=== PATIENT | female | born 1960 | race Two or more races ===

== ENCOUNTER 2024-10-09 14:10 | Emergency (ER) | payer MEDICAID, SELFPAY ==
[2024-10-09 14:10] VITALS: BMI 24.9
--- NOTE | 2024-10-09 14:15 | EKG_ITS ---
[facility] Test Date: 2024-10-09 Pat Name: RAHEEM DIETRICH Department: Room: - Gender: Female Divine Healer: : 1960 Requested By: ED Temporary Provider Order Number: [id number] Reading MD: ED Temporary Provider Measurements Intervals [place] Rate: 92 P: 83 MS: 121 QRS: 58 QRSD: 70 T: 72 QT: 357 QTc: 443 Interpretive Statements SINUS RHYTHM WITH FREQUENT VENTRICULAR PREMATURE COMPLEXES POSSIBLE RIGHT ATRIAL ENLARGEMENT [0.25mV P-WAVE] LEFT ATRIAL ENLARGEMENT [-0.15mV P-WAVE IN V1/V2] MODERATE ST DEPRESSION [0.05+ mV ST DEPRESSION] No previous ECG available for comparison /store/S0/[id number]
[2024-10-09 14:21] VITALS: BP 154/86; PULSE 75; RESP 18; TEMP 36.9; O2SAT 98
--- NOTE | 2024-10-09 14:33 | XR_ITS ---
Examination: PA lateral chest 2 views TECHNIQUE: Upright PA lateral chest 2 views Date and time: October 09, 2024 1446 hours Comparison June 13, 2015 INDICATIONS: Acute chest pain today. FINDINGS: Mild hyperexpansion. Normal heart size. No lobar pneumonia or pulmonary edema. Moderate osteopenia IMPRESSION: Mild hyperexpansion. No pneumonia or pulmonary edema
--- NOTE | 2024-10-09 14:34 | PD.EDRME ---
Rapid Medical Screening Exam RME Arrival date/time: 10/09/24 14:10 63-year-old female with a history of hypertension presents to the emergency room with a chief complaint of 10 out of 10 left sternal chest pain that radiates to the left arm x 2 days I have greeted and performed a focused initial assessment of this patient. A comprehensive ED assessment and evaluation of the patient, analysis of all test results, and completion of the medical decision making process will be conducted by additional ED providers. Chief Complaint: Chest Pain Vital signs: Vital Signs Temperature 98.5 F 10/09/24 14:21 Pulse Rate 75 10/09/24 14:21 Respiratory Rate 18 10/09/24 14:21 Blood Pressure 154/86 H 10/09/24 14:21 Pulse Oximetry (%) 98 10/09/24 14:21 Oxygen Delivery Method Room Air 10/09/24 14:21 Vital signs reviewed by provider: Yes
[2024-10-09 15:12] LABS: Basophils % (Auto) 1 % (0-2.5); Eosinophils % (Auto) 0 % (0-10); Hematocrit 42.7 % (36.0-46.0); Immature Granulocytes % (Auto) 0 % (0-0); Immature Granulocytes Auto 0.03 Thou/mm3 (0.00-0.00); Lymphocytes # (Auto) 1.4 Thou/mm3 (1.0-4.8); Lymphocytes % (Auto) 18 % (10-50); Mean Corpuscular HGB Conc 32.8 g/dl (31.0-37.0); Mean Corpuscular Hemoglobin 28.6 pg (25.0-35.0); Mean Corpuscular Volume 87 fL (80-100); Monocytes # (Auto) 0.4 Thou/mm3 (0.0-0.8); Monocytes % (Auto) 5 % (0-12); Neutrophils # (Auto) 5.9 Thou/mm3 (1.8-7.7); Neutrophils % (Auto) 75 % (37-80); Nucleated Red Blood Cell % 0 /100 WBC (0); Platelet Count 240 Thou/mm3 (140-440); RDW Standard Deviation 43.1 fL (36.4-46.3); White Blood Count 7.8 Thou/mm3 (3.6-11.0)
[2024-10-09 15:29] LABS: Alanine Aminotransferase 12 U/L (10-49); Albumin, Serum 4.3 gm/dL (3.4-4.8); Albumin/Globulin Ratio 1.7 (1.2-2.2); Alkaline Phosphatase 82 U/L (46-116); Anion Gap 9 (7-16); Aspartate Amino Transferase 17 U/L (0-34); BUN/Creatinine Ratio 20 Ratio (12-20); Bilirubin,Total 0.6 mg/dL (0.3-1.2); Blood Urea Nitrogen 14 mg/dL (9-23); Calcium 8.8 mg/dL (8.3-10.6); Calcium (Corrected) 8.8 mg/dL (8.5-10.1); Carbon Dioxide 30.9 mMol/L (20.0-31.0); Chloride 103 mMol/L (98-107); Creatinine (Component) 0.7 mg/dL (0.6-1.3); Estimated Creatinine Clearance 75.8 mL/min (>60); Globulin 2.5 gm/dL (2.3-3.5); Glucose 140 mg/dL (74-106); Osmolality,Calculated 287 (275-295); Potassium 3.4 mMol/L (3.4-5.1); Sodium 143 mMol/L (136-145); Total Protein 6.8 gm/dL (5.7-8.2); Troponin I < 0.002 ng/mL (0.0-0.045); eGFR > 60 See Note
[2024-10-09 15:34] LABS: Collection Type, Urine Clean Catch
[2024-10-09 15:39] LABS: Bilirubin,Urine Negative (Negative); Blood,Urine 1+ (Negative); Clarity,Urine Clear (Clear/Hazy); Color,Urine Lt-Yellow (Lt Yel-Yel); Glucose, Urine Negative (Negative); Ketones,Urine Negative (Negative); Leukocyte Esterase,Urine Negative (Negative); Nitrite,Urine Negative (Negative); Protein,Urine Negative (Neg - Trace); RBC,Urine 2 /hpf (0-3); Specific Gravity,Urine 1.012 (1.001-1.035); Squamous Epithelial Cell,Urine < 1 /hpf (0-5); Urobilinogen,Urine Negative mg/dL (0.0-1.0); WBC,Urine < 1 /hpf (0-5)
[2024-10-09 15:40] LABS: B-Type Natriuretic Peptide 53 pg/mL (0-100)
[2024-10-09 15:45] LABS: Amphetamine/Methamp Scrn,U Negative (Negative); Barbiturate Screen,Urine Negative (Negative); Benzodiazepines Screen,Urine Negative (Negative); Benzoylecgonine Screen, Ur Negative (Negative); Fentanyl Screen,Urine Negative (Negative); Opiate Screen,Urine Negative (Negative); THC Screen,Urine Negative (Negative)
[2024-10-09 16:09] VITALS: BP 142/73; PULSE 70; RESP 16; TEMP 36.7; O2SAT 100
--- NOTE | 2024-10-09 16:15 | CHAP ---
Patient expressed gratitude for visit and prayer.
--- NOTE | 2024-10-09 16:54 | EDNOTE_ITS ---
<Statement entered by Rianna Snyder MD - 10/10/24 06:10> As co-signing physician, I was present and available for consult prn. I concur with the plan and care as documented by the midlevel provider. ED Chest Pain RME/HPI General Chief Complaint: Chest Pain Stated Complaint: CHEST PAIN x 5 DAYS, SEEN BY PMD TODAY Time Seen by Provider: 10/09/24 16:12 Arrival date/time: 10/09/24 14:10 RME / HPI RME / HPI narrative: 63-year-old female with a history of hypertension presents to the emergency room with a chief complaint of 10 out of 10 left sternal chest pain that radiates to the left arm x for the last 5 days. Denies any shortness of breath. Patient denies any cough denies any other complaints no medications taken prior to arrival. Related Data Home Medications ?Medication ?Instructions ?Recorded ?Confirmed carvedilol 3.125 mg tablet (Coreg) 3.125 mg PO BID #0 tabs 04/09/17 10/16/20 aspirin 325 mg tablet 325 mg PO QDAY 12/07/17 0610/01 Previous Rx's ?Medication ?Instructions ?Recorded ibuprofen 800 mg tablet 800 mg PO Q8H PRN pain #30 t abs 10/09/24 Allergies Allergy/AdvReac Type Severity Reaction Status Date / Time codeine AdvReac Severe CHEST PAIN Verified 10/09/24 14:12 Review of Systems Review of Systems Narrative Review of Systems: Review of system reviewed and within normal limits except mentioned in HPI ED Exam Narrative Physical exam: VITAL SIGNS: Reviewed. GENERAL APPEARANCE: Alert and interactive, follows commands, no acute distress, HEAD AND FACE: Non-traumatic. ENT: PERRL, pink conjunctivitis, eyelid no trauma, Mucous membrane moist. NECK: Supple, nontender, no nuchal rigidity. CHEST: No tenderness, no crepitus, no paradoxical movement, no retractions. LUNGS: Clear, well ventilated, symmetric, no rales, no wheezing, no ronchi, no stridor, good breath sounds bilaterally. HEART: Regular rate, regular rhythm, no murmur, no gallops. ABDOMEN: Soft, positive bowel sounds, nondistended, no guarding, nontender, no rebound, no masses, RECTAL: Deferred. GENITAL: Deferred. NEUROLOGICAL: Gross motor function intact sensory function intact, Appropriate for age. MUSCULOSKELETAL: low back nontender, full range of motion. EXTREMITIES: Nontender, full range of motion. SKIN: Color pink, dry, no rash, no lacerations, no abrasions, no contusions. LYMPHATICS: Deferred. Course Quality Measures none Orders Category Date Time Status EKG (ED ONLY) *Do not use* NOW Care 10/09/24 14:15 Completed EKG (ED Only) Stat Exams 10/09/24 14:15 Draft XR chest 2V Stat Exams 10/09/24 14:33 Completed B-Type Natriuretic Peptide Stat Lab 10/09/24 14:58 Completed CBC Stat Lab 10/09/24 14:58 Completed Comprehensive Metabolic Panel Stat Lab 10/09/24 14:58 Completed Drug Screen,Urine Stat Lab 10/09/24 15:25 Completed Magnesium Stat Lab 10/09/24 14:58 Completed Troponin I Stat Lab 10/09/24 14:58 Completed Urinalysis Stat Lab 10/09/24 15:25 Completed Vital Signs Vital signs: Vital Signs Temperature 98.5 F 10/09/24 14:21 Pulse Rate 75 10/09/24 14:21 Respiratory Rate 18 10/09/24 14:21 Blood Pressure 154/86 H 10/09/24 14:21 Pulse Oximetry (%) 98 10/09/24 14:21 Oxygen Delivery Method Room Air 10/09/24 14:21 Chest Pain MDM Narrative MDM Narrative:: 63-year-old female with a history of hypertension presents to the emergency room with a chief complaint of 10 out of 10 left sternal chest pain that radiates to the left arm x for the last 5 days. Denies any shortness of breath. Patient denies any cough denies any other complaints no medications taken prior to arri andrea. Patient CBC came back unremarkable. CMP normal troponin is normal BNP is normal urinalysis no UTI. I personally reviewed and interpreted the x-ray of this patient. There is no acute abnormalities found, no infiltrates no pneumothorax no hemothorax normal chest x-ray. Review of other structures was without significant abnormal findings also. I additionally reviewed the radiologist report and agree with the interpretation. EKG showed normal sinus rhythm, ventricular rate of [address] segment elevation or depression noted. Patient was advised to closely follow-up with PCP and for referral to customer development representative for persistent of chest pain. Today's cardiac workup all came back normal. Patient data External records reviewed:: None Clinical information provided by:: patient Social determinants that could affect healthcare access:: none Patient has the following chronic illnesses:: Hypertension How is presenting disease/condition affected by chronic disease/condition?: exacerbated by Evaluation data The following diagnostics were reviewed and interpreted by me:: lab results, radiology exam(s) and EKG tracing(s) Lab and/or radiology exams considered but not ordered:: None Interpretation Summary: See results in Medications / Prescriptions Medications or Prescriptions considered but not ordered:: None Medication administrations:: None Consultations Consultation(s) initiated? (list below): No Diagnosis Chest Pain Differential Diagnosis: pneumothorax, atypical chest pain and chest pain Most likely diagnosis given after review of the tests above:: Chest pain Admission Indicated Admission indicated?: not indicated Admission Request Was there a request for admission?: No Disposition Plan Disposition Plan: Discharge Discharge Attestation Discharge Attestation: The patient was given an opportunity to ask questions and understood the discharge instructions. Discharge instructions specifically effects, indications for sooner follow up or return to the emergency department, and the expected course of current diagnosis. Patient condition: Stable Discharge Plan Plan Patient Disposition: HOME (Self Care) Discharge Disposition comment: Stable Prescriptions/Referrals Prescriptions/Med Rec: New ibuprofen 800 mg tablet 800 mg PO Q8H PRN (Reason: pain) Qty: 30 0RF No Action carvedilol [Coreg] 3.125 MG tablet 3.125 mg PO BID Qty: 0 aspirin 325 mg Tablet 325 mg PO QDAY Referrals: Randy Ceron MD [Primary Care Provider] - In 1 week Problem List Clinical Impression: Chest pain Patient/Caregiver Discharge Instructions Discharge Activity: activity as tolerated Education Materials: ED Chest Pain, Uncertain Cause Additional Instructions: Thank you for the opportunity for serving you today. You are stable for discharged . You are advised to: Follow-up with your PCP in 1 to 2 days Return to ED for worsening of symptoms Increase oral fluids Take medication as prescribed Print Language: Swedish Stand Alone Forms: Hannah Award Info., Patient Portal Info Letter
== END 2024-10-09 16:55 | disposition home or self-care (01) ==
PROVIDERS: Nurse Practitioner Family; Emergency Provider Emergency Medicine; PCP Family Medicine
DX: R07.9 Chest pain, unspecified (principal); I10 Essential (primary) hypertension
CPT/HCPCS: 36415; 71046; 80053; 80307; 81001; 83735; 83880; 84484; 85025; 93005; 99283

== ENCOUNTER 2024-10-25 11:23 | Emergency (ER) | payer MEDICAID, SELFPAY ==
[2024-10-25] VITALS (8 sets, daily range): BP systolic 117–163; BP diastolic 66–104; PULSE 74–91; RESP 14–24; TEMP 36.7–36.8; O2SAT 76–99; BMI 24.3
--- NOTE | 2024-10-25 11:24 | EKG_ITS ---
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
--- NOTE | 2024-10-25 11:45 | XR_ITS ---
Examination: AP chest single view Technique: AP portable upright chest single view. Date time: 10/25/2024 1231 pm Findings: Normal heart size. No pneumonia or pulmonary edema Impression: No active disease
[2024-10-25] MEDS: fentaNYL CIT INJ 50 mCg/ML AMP 2ML IVP (11:54)
[2024-10-25] MEDS: METOPROLOL TARTRATE INJ 1 MG/ML AMP 5 ML 5 MG IVP (11:55)
--- NOTE | 2024-10-25 11:55 | EDNOTE_ITS ---
ED General RME/HPI General Chief complaint: Chest Pain Stated complaint: CHEST PAIN Time Seen by Provider: 10/25/24 11:41 Arrival date/time: 10/25/24 11:23 Limitations: no limitations RME / HPI RME / HPI narrative: DR. LEVI MAIN ED EVALUATION: 63 year old female presents to the Emergency Department [facility] with complaint of chest pain since 8 AM. Patient took ASA at home with no pain relief. Pain is worse with certain movements and taking a breath. Patient has no history of CAD history but does follow up with carton machine operator Dr. Gonzalez for irregular heart rhythm. Related Data Home Medications ?Medication ?Instructions ?Recorded ?Confirmed carvedilol 3.125 mg tablet (Coreg) 3.125 mg PO BID #0 tabs 04/09/17 10/16/20 aspirin 325 mg tablet 325 mg PO QDAY 12/07/1710/01 Previous Rx's ?Medication ?Instructions ?Recorded ibuprofen 800 mg tablet 800 mg PO Q8H PRN pain #30 t abs 10/09/24 Allergies Allergy/AdvReac Type Severity Reaction Status Date / Time codeine AdvReac Severe CHEST PAIN Verified 10/09/24 14:12 Review of Systems Review of Systems Systems Reviewed: All systems reviewed, normal except as documented Past Medical History Past Medical History CARDIAC: Positive Cardiac Disorders, Myocardial Infarction (2022) and Hypertension; Negative Congestive Heart Failure RESPIRATORY: Negative Chronic Obstructive Pulmonary Disease (COPD) or Asthma GASTROINTESTINAL: Positive Gastrointestinal Disorders, Pancreatitis and Gall Bladder Disease GENITOURINARY: Negative Renal Disease ENDOCRINE: Negative Diabetes Mellitus Type 1 or Diabetes Mellitus Type 2 HEMATOLOGIC: Negative Sickle Cell Disease Family History FAMILY HISTORY: Negative Family Cardiac Disorders Surgical History SURGICAL: Positive Abdominal Surgery, Bowel Surgery and Hysterectomy Social History SMOKING STATUS: Never smoker SUBSTANCE USE: does not use ALCOHOL: Never ED Exam General Limitations: Present no limitations General appearance: Present alert and in no apparent distress Head Head exam: Present atraumatic, normocephalic and normal inspection Eye Eye exam: Present normal appearance, PERRL and EOMI ENT ENT exam: Present normal exam, normal oropharynx and mucous membranes moist Neck Neck exam: Present normal inspection, full ROM and trachea midline Chest Chest inspection: Present symmetric chest wall rise and tenderness (point tenderness to the left chest area, pain is reproducible with palpation) Respiratory Respiratory exam: Present normal lung sounds bilaterally Cardiovascular Cardiovascular exam: Present regular rate, normal rhythm and normal heart sounds Abdominal Exam Abdominal exam: Present soft and normal bowel sounds Extremities Exam Extremities exam: Present normal inspection and full ROM Back Exam Back exam: Present normal inspection and full ROM Neurological Exam Neurological exam: Present alert, oriented X3 and CN II-XII intact Psychiatric Psychiatric exam: Present normal affect and normal mood Skin Skin exam: Present warm, dry, intact and normal color Course Quality Measures none Orders Category Date Time Status CT Screening NOW Care 10/25/24 13:23 Active Supervisor [employer] Q4H START 00 Care 10/25/24 11:34 Active Supervisor [employer] STAT Care 10/25/24 11:45 Completed Continuous Pulse Oximetry ONCE Care 10/25/24 11:45 Active EKG (ED ONLY) *Do not use* NOW Care 10/25/24 11:25 Completed EKG (ED ONLY) *Do not use* NOW Care 10/25/24 13:24 Completed Insert IV NOW Care 10/25/24 11:35 Completed Insert IV STAT Care 10/25/24 11:[address] angio chest Stat Exams 10/25/24 13:23 Completed EKG (ED Only) Stat Exams 10/25/24 11:24 Draft EKG (ED Only) Stat Exams 10/25/24 13:24 Draft XR chest 1V portable Stat Exams 10/25/24 11:45 Completed B-Type Natriuretic Peptide Stat Lab 10/25/24 11:40 Completed CBC Stat Lab 10/25/24 11:40 Completed Comprehensive Metabolic Panel Stat Lab 10/25/24 11:40 Completed Troponin I Stat Lab 10/25/24 11:40 Completed Troponin I Stat Lab 10/25/24 14:25 Completed Metoprolol Tartrate Inj [Lopressor Inj] Med 10/25/24 11:47 Discontinued 5 mg IVP X1 ONE fentaNYL INJ [Sublimaze Inj] Med 10/25/24 11:46 Discontinued 50 mcg IVP X1 ONE Oxygen Delivery NOW RT 10/25/24 11:35 Completed Oxygen Delivery NOW RT 10/25/24 11:45 Active Reevaluation(s) Reevaluation #1: Patient is pain-free. Both troponins were negative, at 1140 hours and 1425 hours. Patient remains clinically stable throughout the emergency department visit. Re- assessment at the time of disposition demonstrates that the patient is in no acute distress. We reviewed all the results, analysis, and treatment plans. Patient is amenable to discharge. Strict return precautions were outlined. Patient was discharged in stable condition. Time: 15:25 Vital Signs Vital signs: Vital Signs Temperature 98.3 F 10/25/24 11:36 Pulse Rate 91 10/25/24 11:36 Respiratory Rate 23 H 10/25/24 11:36 Blood Pressure 163/104 H 10/25/24 11:36 Pulse Oximetry (%) 97 10/25/24 11:36 Oxygen Delivery Method Room Air 10/25/24 11:36 Discharge Plan Plan Patient Disposition: HOME (Self Care) Patient condition on transfer: Stable Prescriptions/Referrals Prescriptions/Med Rec: No Action carvedilol [Coreg] 3.125 MG tablet 3.125 mg PO BID Qty: 0 aspirin 325 mg Tablet 325 mg PO QDAY ibuprofen 800 mg tablet 800 mg PO Q8H PRN (Reason: pain) Qty: 30 0RF Referrals: Randy Ceron MD [Primary Care Provider] - In 1 week Problem List Clinical Impression: Non-cardiac chest pain, Frequent PVCs Patient/Caregiver Discharge Instructions Education Materials: PVCs, ED Chest Pain, Noncardiac Print Language: Greek Stand Alone Forms: Arden Reed Info., Patient Portal Info Letter MDM Clinical Information Provided by patient and EMS Medical Records Reviewed EMS Meds/Rx Considered, not Ordered None Labs/Rad/Tests considered, not Ordered None Chronic Illness/Social Conditions Add or document further as needed: Patient has no history of CAD history but does follow up with carton machine operator Dr. Gonzalez for irregular heart rhythm. EKG EKG Interpretation narrative: EKG #1: My interpretation: EKG performed at 1129 hours, sinus rhythm, rate 91, multiple PVCs, non specific ST-T changes EKG #2: My interpretation: EKG performed at 1140 hours, sinus rhythm, rate 89, multiple PVCs, non specific ST-T changes Lab Interpretation Labs: interpreted by me Lab(s) interpretation(s): Both troponins were negative, at 1140 hours and 1425 hours. Imaging Radiology reports / interpretation(s): Procedure(s): CT angio chest Accession Number(s): [id number] cc: Randy Ceron MD; Willian Levi MD; Kennedy Geronimo MD~ Examination: CTA chest with intravenous contrast 2-D reconstructions 3-D reconstructions, vascular Date and time of exam: 10/25/2024 1353 hrs Indications: Chest pain today CTDI: vol (mGy) 11.8 DLP: (mGycm) 251 Technique: Multiple axial sections of the thorax have been obtained. 3 mm slice thickness, from below the hemidiaphragms to above the apices of the lungs. Mediastinal and lung density settings have been obtained. 2-D sagittal and coronal reconstructions. 3-D angiographic renderings, 3-D volume renderings, 3D post processing, vascular maximum intensity projections obtained. Contrast administered is 100 cc Isovue-370. Low dose protocols were performed. One or more of the following dose reduction techniques were used; automated exposure control, adjustment of the mA and/or KV according to patient size, use of iterative reconstruction technique. Findings: No thoracic aortic aneurysmal dilatation or dissection. No pulmonary emboli. No mediastinal lymphadenopathy. No pneumonia or pulmonary edema or pleural disease. No focal liver or splenic lesion. Impression: Negative for pulmonary artery emboli. No pneumonia or pulmonary edema. Dictated By: Kennedy Geronimo MD Procedure(s): XR chest 1V portable Accession Number(s): [id number] cc: Randy Ceron MD; Willian Levi MD; Kennedy Geronimo MD~ Examination: AP chest single view Technique: AP portable upright chest single view. Date time: 10/25/2024 1231 pm Findings: Normal heart size. No pneumonia or pulmonary edema Impression: No active disease Dictated By: Kennedy Geronimo MD Medication Administration(s) Medication Administration History Discontinued Medications Fentanyl Citrate (Fentanyl Cit Inj 50 Mcg/Ml Amp 2ml) 50 mcg IVP X1 ONE Stop: 10/25/24 11:47 Last Admin: 10/25/24 11:54 Dose: 50 mcg Documented By: CARIDAD Metoprolol Tartrate (Metoprolol Tartrate Inj 1 Mg/Ml Amp 5 Ml) 5 mg IVP X1 ONE Stop: 10/25/24 11:48 Last Admin: 10/25/24 11:55 Dose: 5 mg Documented By: CARIDAD Diagnosis Differential diagnosis: ACS, PE, costochondritis, GERD Most likely dx, and/or detailed dx discussion: Non-cardiac chest pain Frequent PVCs Dispositon Disposition: Discharge Home
[2024-10-25 12:03] LABS: Basophils % (Auto) 1 % (0-2.5); Eosinophils % (Auto) 1 % (0-10); Hematocrit 42.3 % (36.0-46.0); Hemoglobin 14.6 g/dL (12.0-16.0); Immature Granulocytes % (Auto) 1 % (0-0); Immature Granulocytes Auto 0.04 Thou/mm3 (0.00-0.00); Lymphocytes # (Auto) 1.6 Thou/mm3 (1.0-4.8); Lymphocytes % (Auto) 24 % (10-50); Mean Corpuscular HGB Conc 34.5 g/dl (31.0-37.0); Mean Corpuscular Volume 84 fL (80-100); Monocytes # (Auto) 0.4 Thou/mm3 (0.0-0.8); Monocytes % (Auto) 7 % (0-12); Neutrophils # (Auto) 4.6 Thou/mm3 (1.8-7.7); Neutrophils % (Auto) 68 % (37-80); Nucleated Red Blood Cell % 0 /100 WBC (0); Platelet Count 232 Thou/mm3 (140-440); RDW Standard Deviation 41.9 fL (36.4-46.3); Red Blood Count 5.03 Miln/mm3 (4.00-5.20); White Blood Count 6.8 Thou/mm3 (3.6-11.0)
[2024-10-25 12:23] LABS: Alanine Aminotransferase 15 U/L (10-49); Albumin, Serum 4.8 gm/dL (3.4-4.8); Albumin/Globulin Ratio 1.7 (1.2-2.2); Alkaline Phosphatase 93 U/L (46-116); Anion Gap 15 (7-16); Aspartate Amino Transferase 22 U/L (0-34); BUN/Creatinine Ratio 11 Ratio (12-20); Bilirubin,Total 0.7 mg/dL (0.3-1.2); Blood Urea Nitrogen 11 mg/dL (9-23); Calcium 9.9 mg/dL (8.3-10.6); Calcium (Corrected) 9.9 mg/dL (8.5-10.1); Carbon Dioxide 24.5 mMol/L (20.0-31.0); Chloride 103 mMol/L (98-107); Estimated Creatinine Clearance 49.1 mL/min (>60); Globulin 2.8 gm/dL (2.3-3.5); Glucose 123 mg/dL (74-106); Osmolality,Calculated 283 (275-295); Potassium 3.6 mMol/L (3.4-5.1); Sodium 142 mMol/L (136-145); Total Protein 7.6 gm/dL (5.7-8.2); Troponin I < 0.020 ng/mL (0.0-0.045); eGFR > 60 See Note
[2024-10-25 12:48] LABS: B-Type Natriuretic Peptide 70 pg/mL (0-100)
--- NOTE | 2024-10-25 13:22 | PC.NURSE ---
DR. VAN IN TO TALK WITH PT
--- NOTE | 2024-10-25 13:23 | XR_ITS ---
Examination: CTA chest with intravenous contrast 2-D reconstructions 3-D reconstructions, vascular Date and time of exam: 10/25/2024 1353 hrs Indications: Chest pain today CTDI: vol (mGy) 11.8 DLP: (mGycm) 251 Technique: Multiple axial sections of the thorax have been obtained. 3 mm slice thickness, from below the hemidiaphragms to above the apices of the lungs. Mediastinal and lung density settings have been obtained. 2-D sagittal and coronal reconstructions. 3-D angiographic renderings, 3-D volume renderings, 3D post processing, vascular maximum intensity projections obtained. Contrast administered is 100 cc Isovue-370. Low dose protocols were performed. One or more of the following dose reduction techniques were used; automated exposure control, adjustment of the mA and/or KV according to patient size, use of iterative reconstruction technique. Findings: No thoracic aortic aneurysmal dilatation or dissection. No pulmonary emboli. No mediastinal lymphadenopathy. No pneumonia or pulmonary edema or pleural disease. No focal liver or splenic lesion. Impression: Negative for pulmonary artery emboli. No pneumonia or pulmonary edema.
--- NOTE | 2024-10-25 13:24 | EKG_ITS ---
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
[2024-10-25 14:56] LABS: Troponin I < 0.020 ng/mL (0.0-0.045)
== END 2024-10-25 15:45 | disposition home or self-care (01) ==
PROVIDERS: Emergency Provider Emergency Medicine; PCP Family Medicine
DX: R07.89 Other chest pain (principal); I49.3 Ventricular premature depolarization
CPT/HCPCS: 36415; 71045; 71275; 80053; 83880; 84484; 85025; 93005; 96374; 96375; 99285; A4649; J3010; J3490; Q9967

== ENCOUNTER 2025-03-11 09:30 | Outpatient (RCR) | payer MEDICARE, OTHER, SELFPAY ==
--- NOTE | 2025-03-09 10:45 | PTNOTE_ITS ---
PT OP Initial Eval Patient Information Outpatient Physical Therapy Treatment Date: 03/09/25 Visit Reasons: left knee pain Medical Diagnosis: M17.12 Treatment Dx #1: Left Knee Pain Treatment Dx #2: Left Knee Weakness Start of Care: 03/09/25 Date of Onset: 1 year ago Smoking Status Smoking Status: Never smoker Initial Assessment Subjective: Pt is a 64 y/o female reports of chronic left knee pain s/p TKA revision by Dr Elizalde~ 1 year ago. Pt still has pain (6/10) with weakness leading to difficulty with ADLs. Pt has limitation with walking, standing, chores, self care, balance, stairs, and squatting motions. Objective: Left Knee AROM: 0 deg to 120 deg Left Knee MMTs: grossly 4-/5 Left Hip MMTs: grossly 3+/5 SLS: NT Assessment: Pt demonstrate left knee pain with weakness leading to difficulty with ADLs s/p TKA revision. Pt will benefit from physical therapy to increase strength, work on ambulation, and LE stability. Short Term and Correction Goals 1) Increase left knee MMTs grossly to 4/5 in 6 wks to be able to perform squatting motions 2) Decrease knee pain to 2/10 in 6 wks to be able to stand more than 30 mins 3) Increase left hip MMTs grossly to 4-/5 in 6 wks to be able to walk more than 30 mins 4) Increase SLS to 10 sec in 6 wks to be able to perform self care activities 5) Indep with HEP Treatment Plan 1) Manual Therapy 2) Therapeutic Activities 3) Therapeutic Exercises 4) Modalities (ice, heat) 5) Balance Training 6) Gait Training Frequency and Duration: 2 x wk for 6 wks Certification Dates: 03/09/25 to 06/09/25 Procedure Charges OP PT Eval Mod Complex 30 minutes: Yes
--- NOTE | 2025-03-11 10:04 | PT.ODAYNRPT ---
PT Outpatient Daily Note OP Daily Note Outpatient Physical Therapy Treatment Date: 03/11/25 Visit Reasons: left knee pain Subjective: Pt reports L knee pain, worse with increase activity. Objective: Please see flow sheet for ther ex list. Assessment: Pt demonstrates poor activity tolerance due to pain response. Plan: Assess response to treatment. Length of Time (minutes) of Treatment: 30 Minutes Procedure Charges Therapeutic Exercise 30 minutes: Yes
== END 2025-03-13 23:59 | disposition home or self-care (01) ==
LOC: CPTX 09:30
PROVIDERS: PCP Family Medicine; Referring Provider Family Medicine; Visit Provider Family Medicine
DX: M25.562 Pain in left knee (principal); R53.1 Weakness; R26.2 Difficulty in walking, not elsewhere classified; R26.89 Other abnormalities of gait and mobility; Z96.652 Presence of left artificial knee joint
CPT/HCPCS: 97110; 97162

== ENCOUNTER 2025-04-12 17:44 | Emergency (ER) | payer MEDICARE, OTHER, SELFPAY ==
[2025-04-12 17:44] VITALS: BMI 23.3
[2025-04-12 18:10] VITALS: BP 154/82; PULSE 63; RESP 19; TEMP 36.8; O2SAT 98
--- NOTE | 2025-04-12 19:08 | XR_ITS ---
EXAMINATION: Left wrist 2 views TECHNIQUE: AP lateral left wrist 2 views Date and time: April 12, 2025, 1910 hours INDICATIONS: Patient fell today with injury to the wrist, wrist pain. FINDINGS: No fracture. Distal ulna is mildly dorsally positioned on the lateral view Soft tissue calcification adjacent to the radial styloid IMPRESSION: No acute fracture On the lateral view the distal ulna is mildly dorsally positioned, clinical correlation advised
--- NOTE | 2025-04-12 21:48 | EDNOTE_ITS ---
Upper Extremity Injury RME/HPI General Chief Complaint: Hand/Wrist Problems Stated Complaint: L WRIST PAIN S/P FALL Time Seen by Provider: 04/12/25 18:31 Arrival date/time: 04/12/25 17:44 This is a case of 64-year-old female with history of hypertension came in in the emergency room due to left wrist injury history of present illness today patient tripped and fell and landed on his left wrist sustaining a skin tear and pain and swelling on the left wrist no other injury noted denies any head neck chest or abdominal injury no loss of consciousness Limitations: no limitations Related Data Home Medications ?Medication ?Instructions ?Recorded ?Confirmed carvedilol 3.125 mg tablet (Coreg) 3.125 mg PO BID #0 tabs 04/09/17 10/16/20 aspirin 325 mg tablet 325 mg PO QDAY 12/07/1710/01 Previous Rx's ?Medication ?Instructions ?Recorded ibuprofen 800 mg tablet 800 mg PO Q8H PRN pain #30 t abs 10/09/24 cephalexin 500 mg capsule 500 mg PO QID #40 caps 04/12 hydrocodone 5 mg-acetaminophen 325 1 tab PO Q6H PRN pa in #12 tabs 04/12/25 mg tablet mupirocin 2 % topical ointment 1 applic topical BID #2 2 grams 04/12/25 (Centany) Allergies Allergy/AdvReac Type Severity Reaction Status Date / Time codeine Allergy Severe CHEST PAIN Verified 04/12/25 21:44 Review of Systems Review of Systems Systems Reviewed: All systems reviewed, normal except as documented Constitutional Constitutional: Reports system reviewed and no additional complaints, except as documented and Reports as per HPI Cardiovascular Cardiovascular: Reports system reviewed and no additional complaints, except as documented and Reports as per HPI Respiratory Respiratory: Reports system reviewed and no additional complaints, except as documented and Reports as per HPI Gastrointestinal Gastrointestinal: Reports system reviewed and no additional complaints, except as documented and Reports as per HPI Genitourinary Genitourinary: Reports system reviewed and no additional complaints, except as documented and Reports as per HPI Neurologic Neurologic: Reports system reviewed and no additional complaints, except as documented and Reports as per HPI Past Medical History Past Medical History CARDIAC: Positive Cardiac Disorders ([place] 2022), Myocardial Infarction (2022) and Hypertension; Negative Congestive Heart Failure RESPIRATORY: Negative Chronic Obstructive Pulmonary Disease (COPD) or Asthma GASTROINTESTINAL: Positive Gastrointestinal Disorders, Pancreatitis and Gall Bladder Disease GENITOURINARY: Negative Renal Disease ENDOCRINE: Negative Diabetes Mellitus Type 1 or Diabetes Mellitus Type 2 HEMATOLOGIC: Negative Sickle Cell Disease Family History FAMILY HISTORY: Negative Family Cardiac Disorders Surgical History SURGICAL: Positive Abdominal Surgery, Bowel Surgery and Hysterectomy Social History SMOKING STATUS: Never smoker SUBSTANCE USE: does not use ED Exam General Limitations: Present no limitations General appearance: Present alert, in no apparent distress and other (Patient is awake alert oriented not in distress nontoxic looking well-hydrated well nourished) Head Head exam: Present atraumatic, normocephalic and normal inspection Eye Eye exam: Present normal appearance, PERRL and EOMI ENT ENT exam: Present normal exam, normal oropharynx and mucous membranes moist Neck Neck exam: Present normal inspection, full ROM, trachea midline and other (Negative for meningeal sign); Absent tenderness, meningismus, lymphadenopathy or thyromegaly Chest Chest inspection: Present normal inspection and symmetric chest wall rise; Absent tenderness Respiratory Respiratory exam: Present normal lung sounds bilaterally; Absent respiratory distress, wheezes, stridor, accessory muscle use or prolonged expiratory phase Cardiovascular Cardiovascular exam: Present regular rate, normal rhythm and normal heart sounds; Absent bradycardia, tachycardia, irregular rhythm or systolic murmur Abdominal Exam Abdominal exam: Present soft and normal bowel sounds; Absent distention, tenderness, guarding, rebound, rigidity, diminished bowel sounds, hyperactive bowel sounds, hypoactive bowel sounds or organomegaly Extremities Exam Extremities exam: Present normal inspection and full ROM Expanded Upper Extremity Exam Shoulder exam: Present normal inspection and full ROM; Absent tenderness or swelling Arm exam: Present normal inspection and full ROM; Absent tenderness or swelling Elbow exam: Present normal inspection and full ROM; Absent tenderness or swelling Forearm/Wrist exam: Present tenderness, swelling, laceration (Skin tear) and other (ROM limited neurovascular intact); Absent abrasion, ecchymosis, deformity, crepitus, dislocation, erythema, tenderness over anatomical snuff box or pain with axial thumb loading Hand exam: Present normal inspection, full ROM and other (No snuffbox tenderness); Absent tenderness or swelling Back Exam Back exam: Present normal inspection and full ROM Neurological Exam Neurological exam: Present alert, oriented X3, CN II-XII intact, normal gait, reflexes normal and other (Awake alert oriented x 4 no focal deficit GCS 15/15 steady gait motor or sensory reflex were all normal in all extremities negative Babinski); Absent motor sensory deficit Psychiatric Psychiatric exam: Present normal affect and normal mood Skin Skin exam: Present warm, dry, intact, normal color and other (Skin tear left wrist) Course Quality Measures none Orders Category Date Time Status XR wrist LT 2V Stat Exams 04/12/25 19:08 Completed HYDROcodone*/APAP 5/325 [[place] 5/325] Med 04/12/25 21:38 Discontinued 1 tab PO X1 ONE TET,DIP/PERT AC (Adult)-Tdap [Boostrix Adult (Tdap) Med 04/12/25 21:38 Discontinued Vacc] 0.5 ml IMI .ONCE ONE cephALEXin [Keflex] Med 04/12/25 21:38 Discontinued 500 mg PO X1 ONE Vital Signs Vital signs: Vital Signs Temperature 98.2 F 04/12/25 18:10 Pulse Rate 63 04/12/25 18:10 Respiratory Rate 19 04/12/25 18:10 Blood Pressure 154/82 H 04/12/25 18:10 Pulse Oximetry (%) 98 04/12/25 18:10 Oxygen Delivery Method Room Air 04/12/25 18:10 Oxygen saturation is 98%in room air Extremity Injury MDM Narrative MDM Narrative:: This is a case of 29-year-old male with no medical history came in in the emergency room due to a spider bite history of present illness started 2 days prior to arrival in the emergency room patient had spider bite now with redness swelling and lump on the left earlobe thus decided to start consult here in the emergency room patient tetanus shot is up-to-date physical examination patient is awake alert oriented not in distress nontoxic looking neurological exam is normal awake alert oriented x 4 no focal deficit GCS 15/15 steady gait no tenderness in the cervical area ROM intact neurovascular intact patient noted to have 2 skin tear on the left wrist no bleeding no foreign body no bone or tendon injury ROM is limited due to pain pulses are full and equal capillary refill less than 2 seconds nail is intact sensory is intact the rest of the physical examination neurological exam is normal and unremarkable x-ray showed a possible avulsion fracture on the distal ulna thus a splint volar was applied in the left wrist tolerated well sling is also given neurovascular intact skin tear was cleaned with normal saline and apply triple antibiotic and covered with Feliz bandage patient will follow-up with PCP in 2 days for reevaluation and to be referred to orthopedic surgeon for further evaluation and treatment of the distal ulnar fracture for any worsening symptoms or any emergent concern return to the emergency room immediately or call 911 patient was given [place] here in the emergency room patient stated that she cannot tolerate [place] and she had [place] in the past with no reaction after taking [place] patient was observed for 30 minutes no reaction or no allergy no chest pain noted patient was also pr escribed with [place] as needed for pain per patient request tdap also given Patient was discharged with comfortable condition walking with stable gait. Patient verbalized no further complains explained diagnosis and answered patient question. Patient is comfortable with the proposed management plan including the need to follow up with his/her primary care physician and any specialist if applicable Discussed patient for any urgent condition or worsening sx, He/She needed to go to emergency room immediately or call 911. Patient acknowledge the responsibility to follow up as instructed and to monitor her/his symptoms. For any persistence of the symptoms for more than 3-5 days return precaution advised. Discussed the result of the test and was given printed discharge instruction Patient data External records reviewed:: [facility] previous records Clinical information provided by:: patient Social determinants that could affect healthcare access:: none Patient has the following chronic illnesses:: None How is presenting disease/condition affected by chronic disease/condition?: no chronic disease Evaluation data The following diagnostics were reviewed and interpreted by me:: radiology exam(s) Lab and/or radiology exams considered but not ordered:: Reviewed . Interpretation Summary: Reviewed Medications / Prescriptions Medications or Prescriptions considered but not ordered:: Given Medication administrations:: Medication Administration History Discontinued Medications Hydrocodone Bitart/Acetaminophen (Hydrocodone/[place]ap 5/325 Tablet) 1 tab PO X1 ONE Stop: 04/12/25 21:39 Cephalexin HCl (Cephalexin 250 Mg Capsule) 500 mg PO X1 ONE Stop: 04/12/25 21:39 Diphtheria/Tetanus/Acell Pertussis (Diphth,Pertuss(Acell),Tet Vac 0.5 Ml Syr- Adult) 0.5 ml IMi .ONCE ONE Stop: 04/12/25 21:39 Given Consultations Consultation(s) initiated? (list below): No Diagnosis Upper Extremity Injury Differential Diagnosis: sprain and strain of wrist, fracture of wrist, Colles' fracture and fracture of hand Most likely diagnosis given after review of the tests above:: Avulsion fracture of the distal ulna skin tear secondary to fall Admission Indicated Admission indicated?: not indicated Explain why admission is indicated or not indicated:: Not indicated Admission Request Was there a request for admission?: No Admission Attestation Admission request attestation: Not indicated Disposition Plan Disposition Plan: Discharge Discharge Attestation Discharge Attestation: The patient and all family members were given an opportunity to ask questions and understood the discharge instructions. Discharge instructions specifically effects, indications for sooner follow up or return to the emergency department, and the expected course of current diagnosis. Patient condition: Stable Discharge Plan Plan Patient Disposition: HOME (Self Care) Patient condition on transfer: Stable Prescriptions/Referrals Prescriptions/Med Rec: New hydrocodone-acetaminophen 5-325 mg tablet 1 tab PO Q6H MDD max 4 tabs per day PRN (Reason: pain) Qty: 12 0RF cephalexin 500 mg capsule 500 mg PO QID Qty: 40 0RF mupirocin [Centany] 2 % ointment 1 applic topical BID Qty: 22 0RF No Action carvedilol [Coreg] 3.125 MG tablet 3.125 mg PO BID Qty: 0 aspirin 325 mg Tablet 325 mg PO QDAY ibuprofen 800 mg tablet 800 mg PO Q8H PRN (Reason: pain) Qty: 30 0RF Referrals: Randy eCron MD [Primary Care Provider, Family Practice] - In 1 week Problem List Clinical Impression: Fall, Skin tear, Fracture of distal end of left ulna Patient/Caregiver Discharge Instructions Education Materials: Wound Care Dc, Preventing Falls How to ..., ED Forearm Fx Wo Redu, ED Splint Care, Fiberglass, ED RICE Additional Instructions: Follow-up with your primary care physician in 2 days for reevaluation and to be referred to orthopedic surgeon for further evaluation and treatment of avulsion fracture distal ulna left wrist worsening symptoms or any emergent concerns such as redness swelling discharge from the wound pain fever chills numbness weakness tingling sensation return to the emergency room immediately or call 911 take your medication as directed finish the course of antibiotic ice pack every 2 hours 20 minutes for 24 hours then alternate with warm compress elevate to decrease swelling keep the splint and sling in place until cleared by your pr imary care physician Print Language: Tristanian Stand Alone Forms: Hannah Award Info., Patient Portal Info Letter PA/[employer] Supervising Physician PA/[employer] Supervising Physician: Dr Bronwyn rudd
[2025-04-12] MEDS: HYDROcodone/APAP 5/325 TABLET 1 TAB PO (21:57)
[2025-04-12] MEDS: DIPHTH,PERTUSS(ACELL),TET VAC 0.5 ML SYR- ADULT IMi (21:58)
[2025-04-12 22:03] VITALS: BP 145/80; PULSE 63; RESP 20; TEMP 36.9; O2SAT 98
== END 2025-04-12 22:05 | disposition home or self-care (01) ==
PROVIDERS: Emergency Provider Emergency Medicine; PCP Family Medicine
DX: S52.602A Unspecified fracture of lower end of left ulna, initial encounter for closed fracture (principal); S61.512A Laceration without foreign body of left wrist, initial encounter; W01.10XA Fall on same level from slipping, tripping and stumbling with subsequent striking against unspecified object, initial encounter; Z23 Encounter for immunization
CPT/HCPCS: 73100; 90471; 90715; 99283; A9270